=== PATIENT | male | born 1975 | race Caucasian/White ===

== ENCOUNTER 2021-10-01 02:33 | Emergency (ER) | payer OTHER ==
[2021-10-01 03:20] LABS: RED BLOOD COUNT 5.77 M/UL (4.20-5.50)
[2021-10-01 03:37] LABS: BUN/CREATININE RATIO 18 (0-10)
== END 2021-10-01 12:02 | disposition home or self-care (01) ==
LOC: ER1 02:33
PROVIDERS: Student in an Organized Health Care Education/Training Program
DX: G93.40 Encephalopathy, unspecified (principal); F15.10 Other stimulant abuse, uncomplicated
CPT/HCPCS: 51702; 70450; 71045; 80053; 80307; 81001; 82140; 82550; 82553; 83605; 84484; 85025; 99285